=== PATIENT | female | born 1980 | race Caucasian/White ===

== ENCOUNTER 2020-11-06 03:20 | Emergency (ER) | payer OTHER ==
[~2020-11-06] VITALS: Ht 154.9 cm; Wt 66.7 kg
[~2020-11-06 03:20] MED LIST: ACID CONTROL150 MG; BACTRIM DS TAB1 EACH PO; DIAZEPAM10 MG PO; DICY10CA; FLEXERIL10 MG PO; INTESTINEX680 M1 PO; KETO10TA2 PO; MOTRIN800 MG PO; ONDANSETRON ODT4 MG SL; PANADOL EXTRA500 MG; PEPCID AC20 MG PO; PEPCID40 MG PO; ZOFRAN4 MG; ZOFRAN4 MG PO
[2020-11-06] MEDS ORDERED: PEPCID40 MG PO (08:07)
[2020-11-06] MEDS ORDERED: MOBIC15 MG PO (08:07)
[2020-11-06] MEDS ORDERED: ORPHENADRINE C100 MG PO (08:07)
== END 2020-11-06 08:20 ==
LOC: ER 03:20
DX: M54.2 Cervicalgia (principal); M54.6 Pain in thoracic spine

== ENCOUNTER 2021-03-03 13:13 | Emergency (ER) | payer OTHER ==
[~2021-03-03] VITALS: Ht 154.9 cm; Wt 66.7 kg
[~2021-03-03 13:13] MED LIST changes: +MOBIC15 MG PO; +ORPHENADRINE C100 MG PO
[2021-03-03] MEDS ORDERED: NORFLEX100MG PO (16:24)
[2021-03-03] MEDS ORDERED: KETO10TA2 PO (16:24)
[2021-03-03] MEDS ORDERED: AMOX-CLAV 875-1 EACH PO (16:24)
== END 2021-03-03 16:35 | disposition home or self-care (01) ==
LOC: ER 13:13
DX: B34.9 Viral infection, unspecified (principal); Z11.52 Encounter for screening for COVID-19

== ENCOUNTER 2021-03-08 19:24 | Emergency (ER) | payer OTHER ==
[~2021-03-08] VITALS: Ht 154.9 cm; Wt 66.7 kg
[~2021-03-08 19:24] MED LIST changes: +AMOX-CLAV 875-1 EACH PO; +NORFLEX100MG PO
[2021-03-08] MEDS ORDERED: INVOKAMET XR 11 EACH PO (19:38)
[2021-03-09] MEDS ORDERED: INTESTINEX680 M1 PO (00:57)
[2021-03-09] MEDS ORDERED: PEPCID20 MG PO (00:57)
== END 2021-03-09 01:02 | disposition home or self-care (01) ==
LOC: ER 19:24
DX: A09 Infectious gastroenteritis and colitis, unspecified (principal)

== ENCOUNTER 2021-06-25 06:41 | Emergency (ER) | payer OTHER ==
[~2021-06-25] VITALS: Ht 154.9 cm; Wt 68.0 kg
[~2021-06-25 06:41] MED LIST changes: +INVOKAMET XR 11 EACH PO; +PEPCID20 MG PO
[2021-06-25] MEDS ORDERED: NORFLEX100MG PO (10:28)
[2021-06-25] MEDS ORDERED: KETO10TA2 PO (10:28)
== END 2021-06-25 10:32 | disposition home or self-care (01) ==
LOC: ER 06:41
DX: B34.9 Viral infection, unspecified (principal); Z03.818 Encounter for observation for suspected exposure to other biological agents ruled out; M54.5 Low back pain; R07.0 Pain in throat; R53.81 Other malaise

== ENCOUNTER 2021-09-12 06:04 | Emergency (ER) | payer OTHER ==
[~2021-09-12] VITALS: Ht 154.9 cm; Wt 68.0 kg
[2021-09-12] MEDS ORDERED: FOSAMAX70 MG (06:19)
== END 2021-09-12 11:29 | disposition home or self-care (01) ==
LOC: ER 06:04
DX: R42 Dizziness and giddiness (principal)

== ENCOUNTER 2021-09-15 00:43 | Emergency (ER) | payer OTHER ==
[~2021-09-15] VITALS: Ht 154.9 cm; Wt 68.0 kg
[~2021-09-15 00:43] MED LIST changes: +FOSAMAX70 MG
[2021-09-15] MEDS ORDERED: PHENTERMINE HCL30 MG (00:56)
[2021-09-15] MEDS ORDERED: ORPHENADRINE C100 MG PO (06:14)
[2021-09-15] MEDS ORDERED: NAPROXEN SODIU550 MG PO (06:14)
== END 2021-09-15 06:39 ==
LOC: ER 00:43
DX: M54.50 Low back pain, unspecified (principal)

== ENCOUNTER 2022-03-12 03:49 | Emergency (ER) | payer OTHER ==
[~2022-03-12] VITALS: Ht 154.9 cm; Wt 75.7 kg
[~2022-03-12 03:49] MED LIST changes: +NAPROXEN SODIU550 MG PO; +PHENTERMINE HCL30 MG
[2022-03-12] MEDS ORDERED: MEDROL8 MG PO (08:13)
[2022-03-12] MEDS ORDERED: KETO10TA2 PO (08:13)
[2022-03-12] MEDS ORDERED: ORPHENADRINE C100 MG PO (08:13)
== END 2022-03-12 08:25 ==
LOC: ER 03:49
DX: M54.59 Other low back pain (principal)

== ENCOUNTER 2022-12-30 06:09 | Emergency (ER) | payer OTHER ==
[~2022-12-30] VITALS: Ht 160 cm; Wt 61.2 kg
[~2022-12-30 06:09] MED LIST changes: +MEDROL8 MG PO
[2022-12-30] MEDS ORDERED: KETO10TA2 PO (10:36)
[2022-12-30] MEDS ORDERED: NORFLEX100MG PO (10:36)
== END 2022-12-30 10:38 | disposition home or self-care (01) ==
LOC: ER 06:09
DX: M54.2 Cervicalgia (principal); M54.50 Low back pain, unspecified

== ENCOUNTER 2023-07-12 11:24 | Emergency (ER) | payer OTHER ==
[~2023-07-12] VITALS: Ht 154.9 cm; Wt 72.6 kg
[2023-07-12] MEDS ORDERED: DICLOFENAC SODI75 MG PO (12:43)
== END 2023-07-12 13:08 | disposition home or self-care (01) ==
LOC: ER 11:24
DX: S79.812A Other specified injuries of left hip, initial encounter (principal); W18.39XA Other fall on same level, initial encounter; Y93.F1 Activity, caregiving, bathing; Y92.012 Bathroom of single-family (private) house as the place of occurrence of the external cause; S99.812A Other specified injuries of left ankle, initial encounter

== ENCOUNTER 2025-03-07 04:57 | Emergency (ER) | payer OTHER ==
[~2025-03-07] VITALS: Ht 154.9 cm; Wt 77.1 kg
[~2025-03-07 04:57] MED LIST changes: +DICLOFENAC SODI75 MG PO
[2025-03-07] MEDS ORDERED: TRIAMCINOLONE ACETONIDE 40 MG/ML VIAL IM STA (07:43)
[2025-03-07] MEDS ORDERED: KETOROLAC TROMETHAMINE 60 MG VIAL IM STA (07:43)
[2025-03-07] MEDS ORDERED: TRIAMCINOLONE ACETONIDE 40 MG/ML VIAL ONE (07:57)
[2025-03-07] MEDS ORDERED: KETOROLAC TROMETHAMINE 60 MG VIAL IM ONE (07:57)
== END 2025-03-07 09:52 | disposition home or self-care (01) ==
LOC: ER 04:57
DX: M72.2 Plantar fascial fibromatosis (principal)